=== PATIENT | male | born 1965 | race Hispanic/Latino ===

== ENCOUNTER 2022-11-08 13:43 | Inpatient (IN) | payer OTHER ==
[~2022-11-08] VITALS: Ht 160 cm; Wt 63.2 kg
[2022-11-08] MEDS: HEPARIN 5,000 UNIT VIAL IV SCH (14:00)
[2022-11-08] MEDS ORDERED: NITROGLYCERIN 50MG/D5W 250ML 250 BOT IV SCH (14:00)
[2022-11-08] MEDS ORDERED: HEPARIN 25,000 UNITS/250ML D5W 250 ML IV SCH (14:00)
[2022-11-08] MEDS ORDERED: NITROGLYCERIN 50MG/D5W 250ML 1 BOT IV PRN (14:00)
[2022-11-08 14:13] LABS: BASOPHILS % (AUTO) 0.2 % (0.0-5.0); LYMPHOCYTES % (AUTO) 7.3 % (21.0-51.0); MEAN CORPUSCULAR HEMOGLOBIN 28.1 pg (27.0-33.0); MEAN CORPUSCULAR HGB CONC 33.5 g/dL (32.0-36.0); MEAN CORPUSCULAR VOLUME 83.9 fL (79-99); MONOCYTES % (AUTO) 4.6 % (3.0-13.0); NEUTROPHILS % (AUTO) 86.9 % (40.0-77.0); PLATELET COUNT (AUTO) 182 K/uL (130-400); RED BLOOD CELL COUNT(AUTO) 4.41 MIL/uL (4.50-6.20); RED CELL DISTRIBUTION WIDTH 13.8 % (11.0-15.5); WHITE BLOOD COUNT (AUTO) 6.3 K/uL (4.8-10.8)
[2022-11-08 14:24] LABS: INR 0.99 (0.85-1.15); PROTHROMBIN TIME 10.8 SEC (9.6-11.6)
[2022-11-08 14:26] LABS: ALBUMIN 3.5 g/dL (3.5-5.0); MAGNESIUM 1.7 mg/dL (1.80-2.40); PARTIAL THROMBOPLASTIN TIME 29.2 SEC (26.3-35.5); TOTAL PROTEIN, SERUM 6.4 g/dL (6.0-8.3)
[2022-11-08] MEDS ORDERED: TICAGRELOR 90 MG TABLET PO ONE (14:30)
[2022-11-08] MEDS ORDERED: ASPIRIN 81MG CHEW TAB PO ONE (14:30)
[2022-11-08 14:33] LABS: B-TYPE NATRIURETIC PEPTIDE 45 pg/mL (0-100)
[2022-11-08 14:43] LABS: APPEARANCE,URINE CLEAR (CLEAR); BILIRUBIN,URINE NEGATIVE (NEGATIVE); COLOR,URINE LIGHT-YELLOW (YELLOW); GLUCOSE, URINE (UA) NEGATIVE (NEGATIVE); KETONES,URINE NEGATIVE (NEGATIVE); LEUKOCYTE ESTERASE ,URINE NEGATIVE Leu/uL (NEGATIVE); NITRATE,URINE NEGATIVE (NEGATIVE); OCCULT BLOOD,URINE NEGATIVE (NEGATIVE); PH,URINE 5.5 (5.0-8.0); PROTEIN,URINE NEGATIVE (NEGATIVE); UROBILINOGEN,URINE 0.2 mg/dL (0.2-1.0)
[2022-11-08 14:45] LABS: MUCUS,URINE RARE LPF (None Seen); SQUAMOUS EPITHELIAL CELL,UR RARE /HPF (0-2); WBC,URINE 0-1 /HPF (0-1)
[2022-11-08] MEDS: MAGNESIUM 2GM PREMIX 50ML 50 ML IV SCH (17:44)
[2022-11-08 18:58] LABS: AMPHET/METH SCREEN,URINE NEGATIVE (NEGATIVE); BARBITURATE SCREEN, URINE NEGATIVE (NEGATIVE); BENZODIAZEPINES SCREEN,URINE NEGATIVE (NEGATIVE); CANNABINOID SCREEN,URINE NEGATIVE (NEGATIVE); COCAINE SCREEN,URINE NEGATIVE (NEGATIVE); OPIATE SCREEN,URINE NEGATIVE (NEGATIVE); PHENCYCLIDINE SCREEN,URINE NEGATIVE (NEGATIVE)
[2022-11-08 19:20] LABS: MAGNESIUM 9.2 mg/dL (1.80-2.40); PHOSPHORUS 16.5 mg/dL (2.5-4.9)
[2022-11-08] MEDS: METOPROLOL TARTRATE 25 MG TAB PO SCH (20:29)
[2022-11-08] MEDS: FAMOTIDINE 20MG VIAL IV SCH (20:29)
[2022-11-08] MEDS: ATORVASTATIN 40 MG TABLET PO SCH (20:30)
[2022-11-08 20:51] LABS: INR 1.02 (0.85-1.15); PROTHROMBIN TIME 11.1 SEC (9.6-11.6)
[2022-11-08 20:53] LABS: PARTIAL THROMBOPLASTIN TIME 58.6 SEC (26.3-35.5)
[2022-11-09] VITALS (13 sets, daily range): BP systolic 86–143; BP diastolic 50–90
[2022-11-09 02:07] LABS: INR 1.06 (0.85-1.15); PROTHROMBIN TIME 11.5 SEC (9.6-11.6)
[2022-11-09 02:09] LABS: PARTIAL THROMBOPLASTIN TIME 55.8 SEC (26.3-35.5)
[2022-11-09 02:46] LABS: MYOGLOBIN 483 ng/mL (10-92)
[2022-11-09 03:15] LABS: CREATINE KINASE, TOTAL 2043 U/L (21-232)
[2022-11-09] MEDS ORDERED: IPRATROPIUM 0.5 MG/2.5 ML INH IH ONE (06:45)
[2022-11-09] MEDS: HEPARIN 5,000 UNIT VIAL IV SCH (07:00)
[2022-11-09] MEDS: METOPROLOL TARTRATE 25 MG TAB PO SCH ×2 (08:10→20:18)
[2022-11-09] MEDS: FAMOTIDINE 20MG VIAL IV SCH (08:10)
[2022-11-09 08:27] LABS: MAGNESIUM 1.9 mg/dL (1.80-2.40); PHOSPHORUS 3.3 mg/dL (2.5-4.9)
[2022-11-09] MEDS: TICAGRELOR 90 MG TABLET PO SCH ×2 (09:55→20:18)
[2022-11-09] MEDS: ASPIRIN 81 MG EC TAB PO SCH (09:55)
[2022-11-09] MEDS ORDERED: LIDOCAINE HCL 400MG/20ML VIAL ONE (13:28)
[2022-11-09] MEDS ORDERED: NITROGLYCERIN 50MG VIAL ONE ×2 (13:28→13:42)
[2022-11-09] MEDS ORDERED: IOHEXOL 350 MG/ML 100ML INFUS..BTL IV ONE ×2 (13:28→14:29)
[2022-11-09] MEDS ORDERED: HEPARIN 10,000 UNIT/10ML (1,000 UNIT/ML) VIAL ONE (13:28)
[2022-11-09] MEDS ORDERED: MIDAZOLAM HCL 1 MG/ML 2ML VIAL ONE (13:28)
[2022-11-09] MEDS ORDERED: BIVALIRUDIN 250 MG/VIAL IV ONE (13:28)
[2022-11-09] MEDS ORDERED: FENTANYL CITRATE PF 50 MCG/1 ML 2ML VIAL ONE (13:34)
[2022-11-09] MEDS ORDERED: 0.9%NACL 1000ML 1,000 ML IV SCH (15:00)
[2022-11-09] MEDS ORDERED: PHARMACY COMMUNICATION MISC SCH (19:30)
[2022-11-09] MEDS ORDERED: HEPARIN 25,000 UNITS/250ML D5W 250 ML IV SCH (20:00)
[2022-11-09] MEDS: ATORVASTATIN 40 MG TABLET PO SCH (20:18)
[2022-11-10] VITALS (14 sets, daily range): BP systolic 78–120; BP diastolic 51–68
[2022-11-10] MEDS ORDERED: 0.9% NACL 500ML IV.SOLN 500 ML IV SCH
[2022-11-10 02:59] LABS: BASOPHILS % (AUTO) 0.2 % (0.0-5.0); HEMATOCRIT 31.9 % (42-54); LYMPHOCYTES % (AUTO) 33.4 % (21.0-51.0); MEAN CORPUSCULAR HEMOGLOBIN 28.2 pg (27.0-33.0); MEAN CORPUSCULAR HGB CONC 32.6 g/dL (32.0-36.0); MEAN CORPUSCULAR VOLUME 86.4 fL (79-99); MONOCYTES % (AUTO) 8.3 % (3.0-13.0); NEUTROPHILS % (AUTO) 57.3 % (40.0-77.0); PLATELET COUNT (AUTO) 117 K/uL (130-400); RED BLOOD CELL COUNT(AUTO) 3.69 MIL/uL (4.50-6.20); RED CELL DISTRIBUTION WIDTH 14.1 % (11.0-15.5); WHITE BLOOD COUNT (AUTO) 4.9 K/uL (4.8-10.8)
[2022-11-10 03:40] LABS: CREATININE 0.9 mg/dL (0.5-1.5); THYROID STIMULATING HORMONE 0.91 uIU/mL (0.36-3.74)
[2022-11-10 03:52] LABS: % IRON SATURATION 6.5 % (30-44)
[2022-11-10] MEDS ORDERED: 0.9% NACL 250ML 250 ML IV SCH (06:00)
[2022-11-10] MEDS: TICAGRELOR 90 MG TABLET PO SCH ×2 (08:17→19:41)
[2022-11-10] MEDS: ASPIRIN 81 MG EC TAB PO SCH (08:17)
[2022-11-10] MEDS: METOPROLOL TARTRATE 25 MG TAB PO SCH ×2 (08:22→21:00)
[2022-11-10] MEDS: ATORVASTATIN 40 MG TABLET PO SCH (19:41)
[2022-11-11] VITALS (9 sets, daily range): BP systolic 85–127; BP diastolic 53–73
[2022-11-11 04:07] LABS: HEMOGLOBIN A1C 6.4 % (4.0-6.0)
[2022-11-11 04:23] LABS: CHOLESTEROL 152 mg/dL (<200); HDL CHOLESTEROL 36 mg/dL (29-71); LDL DIRECT 95 mg/dL (0-99); TRIGLYCERIDES 91 mg/dL (30-200)
[2022-11-11] MEDS: ASPIRIN 81 MG EC TAB PO SCH (08:10)
[2022-11-11] MEDS: METOPROLOL TARTRATE 25 MG TAB PO SCH ×2 (08:10→20:47)
[2022-11-11] MEDS: TICAGRELOR 90 MG TABLET PO SCH ×2 (08:10→20:46)
[2022-11-11 15:18] LABS: APPEARANCE,URINE CLEAR (CLEAR); BILIRUBIN,URINE NEGATIVE (NEGATIVE); COLOR,URINE LIGHT-YELLOW (YELLOW); GLUCOSE, URINE (UA) 50 mg/dL (NEGATIVE); KETONES,URINE NEGATIVE (NEGATIVE); LEUKOCYTE ESTERASE ,URINE NEGATIVE Leu/uL (NEGATIVE); NITRATE,URINE NEGATIVE (NEGATIVE); OCCULT BLOOD,URINE NEGATIVE (NEGATIVE); PROTEIN,URINE 10 mg/dL (NEGATIVE); UROBILINOGEN,URINE 3 mg/dL (0.2-1.0)
[2022-11-11 15:25] LABS: MUCUS,URINE RARE LPF (None Seen); RBC,URINE 0-1 /HPF (0-1)
[2022-11-11] MEDS: CEFTRIAXONE 2GM VIAL IVPB SCH (15:33)
[2022-11-11] MEDS: ACETAMINOPHEN 325 MG TAB PO PRN ×2 (15:41→21:20)
[2022-11-11 16:32] LABS: POTASSIUM 4.2 mmol/L (3.5-5.1)
[2022-11-11 16:52] LABS: HEMATOCRIT 29.5 % (42-54); LYMPHOCYTES % (AUTO) 19.3 % (21.0-51.0); MEAN CORPUSCULAR HGB CONC 33.2 g/dL (32.0-36.0); MEAN CORPUSCULAR VOLUME 84.3 fL (79-99); MONOCYTES % (AUTO) 6.2 % (3.0-13.0); NEUTROPHILS % (AUTO) 73.3 % (40.0-77.0); PLATELET COUNT (AUTO) 121 K/uL (130-400); RED CELL DISTRIBUTION WIDTH 14.1 % (11.0-15.5); WHITE BLOOD COUNT (AUTO) 1.6 K/uL (4.8-10.8)
[2022-11-11] MEDS: ATORVASTATIN 40 MG TABLET PO SCH (20:46)
[2022-11-12 03:21] VITALS: BP 106/64
[2022-11-12 03:43] LABS: BASOPHILS % (AUTO) 0.3 % (0.0-5.0); HEMATOCRIT 33.2 % (42-54); LYMPHOCYTES % (AUTO) 19.8 % (21.0-51.0); MEAN CORPUSCULAR HEMOGLOBIN 27.6 pg (27.0-33.0); MEAN CORPUSCULAR HGB CONC 33.1 g/dL (32.0-36.0); MEAN CORPUSCULAR VOLUME 83.2 fL (79-99); MONOCYTES % (AUTO) 7.5 % (3.0-13.0); NEUTROPHILS % (AUTO) 65.7 % (40.0-77.0); PLATELET COUNT (AUTO) 122 K/uL (130-400); RED BLOOD CELL COUNT(AUTO) 3.99 MIL/uL (4.50-6.20); RED CELL DISTRIBUTION WIDTH 13.8 % (11.0-15.5); WHITE BLOOD COUNT (AUTO) 3.9 K/uL (4.8-10.8)
[2022-11-12 08:00] VITALS: BP 120/52
[2022-11-12] MEDS: TICAGRELOR 90 MG TABLET PO SCH ×2 (08:24→20:43)
[2022-11-12] MEDS: ACETAMINOPHEN 325 MG TAB PO PRN (08:24)
[2022-11-12] MEDS: ASPIRIN 81 MG EC TAB PO SCH (08:25)
[2022-11-12] MEDS: METOPROLOL TARTRATE 25 MG TAB PO SCH ×2 (08:25→20:46)
[2022-11-12 11:21] VITALS: BP 81/52
[2022-11-12] MEDS: CEFTRIAXONE 2GM VIAL IVPB SCH (15:48)
[2022-11-12 16:00] VITALS: BP 91/56
[2022-11-12] MEDS: DOXYCYCLINE 100MG+NS 250ML IV SCH (18:05)
[2022-11-12] MEDS ORDERED: 0.9% NACL 250ML 250 ML ONE (18:10)
[2022-11-12 19:36] VITALS: BP 129/65
[2022-11-12] MEDS: ATORVASTATIN 40 MG TABLET PO SCH (20:46)
[2022-11-13 00:46] VITALS: BP 98/57
[2022-11-13 04:08] LABS: HEMATOCRIT 29.2 % (42-54); MEAN CORPUSCULAR HEMOGLOBIN 27.8 pg (27.0-33.0); MEAN CORPUSCULAR HGB CONC 33.2 g/dL (32.0-36.0); MEAN CORPUSCULAR VOLUME 83.7 fL (79-99); MONOCYTES % (AUTO) 4.7 % (3.0-13.0); NEUTROPHILS % (AUTO) 64.4 % (40.0-77.0); PLATELET COUNT (AUTO) 121 K/uL (130-400); RED BLOOD CELL COUNT(AUTO) 3.49 MIL/uL (4.50-6.20); WHITE BLOOD COUNT (AUTO) 1.9 K/uL (4.8-10.8)
[2022-11-13 04:33] LABS: CRP QUANTITATIVE 154.3 mg/L (0.00-9.0); MAGNESIUM 1.5 mg/dL (1.80-2.40); PHOSPHORUS 2.5 mg/dL (2.5-4.9); POTASSIUM 3.3 mmol/L (3.5-5.1)
[2022-11-13 04:38] VITALS: BP 90/56
[2022-11-13] MEDS: DOXYCYCLINE 100MG+NS 250ML IV SCH (05:02)
[2022-11-13] MEDS: MAGNESIUM 2GM PREMIX 50ML 50 ML IV SCH (05:03)
[2022-11-13 05:20] LABS: ERYTHROCYTE SEDIMENTATION RATE 24 MM/HR (0-20)
[2022-11-13 07:00] VITALS: BP 95/63
[2022-11-13] MEDS: TICAGRELOR 90 MG TABLET PO SCH (08:19)
[2022-11-13] MEDS: ASPIRIN 81 MG EC TAB PO SCH (08:19)
[2022-11-13] MEDS: METOPROLOL TARTRATE 25 MG TAB PO SCH (08:25)
[2022-11-13] MEDS ORDERED: POTASSIUM CHLORIDE 10% ELIXIR 20 MEQ/15 ML UDCUP PO ONE (09:30)
[2022-11-13] MEDS ORDERED: LIDOCAINE HCL-MPF 1% 2ML VIAL IV PRN (09:30)
[2022-11-13] MEDS ORDERED: POTASSIUM CHLORIDE 10% ELIXIR 20 MEQ/15 ML UDCUP PO PRN (09:30)
[2022-11-13] MEDS ORDERED: KCL 20 MEQ ERTAB PO PRN (09:30)
[2022-11-13] MEDS ORDERED: POTASSIUM CHLORIDE 20MEQ/100ML 100 ML IV PRN (09:30)
[2022-11-13 09:33] LABS: ALBUMIN 2.3 g/dL (3.5-5.0); BILIRUBIN,DIRECT 0.1 mg/dL (0.0-0.3); TOTAL PROTEIN, SERUM 4.4 g/dL (6.0-8.3)
[2022-11-13 11:00] VITALS: BP 101/70
[2022-11-13] MEDS ORDERED: AEC81 PO (11:51)
[2022-11-13] MEDS ORDERED: ATOR40TA69 PO (11:51)
[2022-11-13] MEDS ORDERED: TICA90TA PO (11:51)
[2022-11-13] MEDS ORDERED: DOXY100C5 PO (11:51)
[2022-11-13] MEDS ORDERED: 0.9%NACL 1000ML 500 ML IV SCH (12:00)
[2022-11-13] MEDS ORDERED: MAGNESIUM CHLORIDE 64 MG TABLET.SA PO SCH (21:00)
== END 2022-11-13 14:00 | disposition home or self-care (01) | DRG 247 ==
LOC: EDH 13:43 → EDHIP 18:12 → 2DH 11-09 02:07
PROVIDERS: ADMIT Internal Medicine; ATTEND Internal Medicine
PROC: B2111ZZ Fluoroscopy of Multiple Coronary Arteries using Low Osmolar Contrast (ICD-10-PCS; principal; 2022-11-09)
PROC: 027034Z Dilation of Coronary Artery, One Artery with Drug-eluting Intraluminal Device, Percutaneous Approach (ICD-10-PCS; 2022-11-09)
PROC: 02C03ZZ Extirpation of Matter from Coronary Artery, One Artery, Percutaneous Approach (ICD-10-PCS; 2022-11-09)
PROC: 4A023N7 Measurement of Cardiac Sampling and Pressure, Left Heart, Percutaneous Approach (ICD-10-PCS; 2022-11-09)
DX: I21.4 Non-ST elevation (NSTEMI) myocardial infarction (principal); E87.1 Hypo-osmolality and hyponatremia; G40.909 Epilepsy, unspecified, not intractable, without status epilepticus; I25.5 Ischemic cardiomyopathy; E83.42 Hypomagnesemia; D64.9 Anemia, unspecified; Z85.72 Personal history of non-Hodgkin lymphomas
CPT/HCPCS: 36415; 71045; 76882; 80048; 80053; 80061; 80076; 80305; 81001; 82550; 82607; 82728; 82746; 82948; 83036; 83540; 83550; 83605; 83735; 83874; 83880; 84100; 84145; 84443; 84484; 85025; 85045; 85610; 85651; 85730; 86140; 87040; 87088; 92973; 92978; 93005; 93306; 93356; 93454; C1887; C1894; C9606; G0378; J0583; J0696; J1644; J2250; J3010; J3475; J3490; J7030; J7040; J7050; Q9967

== ENCOUNTER → 2023-02-15 | Outpatient (CLI) | payer OTHER ==
[~2023-02-15] MED LIST: AEC81 PO; ATOR40TA69 PO; DOXY100C5 PO; TICA90TA PO
== END | disposition home or self-care (01) ==
LOC: SHCH 12:54
PROVIDERS: ATTEND Internal Medicine
DX: I25.5 Ischemic cardiomyopathy (principal); I51.7 Cardiomegaly; Z98.61 Coronary angioplasty status
CPT/HCPCS: 93306

== ENCOUNTER 2025-05-03 18:41 | Emergency (ER) | payer BC, OTHER ==
[~2025-05-03] VITALS: Ht 160 cm; Wt 55.3 kg
--- NOTE | 2025-05-03 21:11 | ERN ---
ED Note History of Present Illness Stated Complaint: BACK PAIN Chief Complaint: Back Pain-No Injury Time Seen by MD: 18:44 Time Seen by Midlevel: 18:45 Dictation: 60-year-old male presents to the emergency department due to reported having pain to lower back which he attributes to having had sustained a fall 3 weeks ago. Patient states the pain is primarily with certain particular movements. At this time, he rates his level of discomfort as a 4/10. He denies having any loss of bowel or bladder and maintains a normal neurological function to both lower extremities. Upon initial evaluation, the patient presents mildly uncomfortable looking. 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 Prov:DEVENDRA ANGEL Jr., MD 11/13/22 Atorvastatin Calcium (LIPITOR) 40 Mg Tablet, 80 MG PO HS for HYPERLIPIDEMIA for 90 Days, #90 TAB 3 Refills Take 1 tablet orally at bedtime Prov:DEVENDRA ANGEL Jr., MD 11/13/22 Aspirin (ASPIRIN 81 MG ECTAB) 81 Mg Ectab, 81 MG PO DAILY for CAD/FIDELINA for 90 Days, #90 TAB.EC 3 Refills Take 1 aspirin daily for 1 year (until 11/09/2023) or unless otherwise specified by lamp stack developer. Prov:DEVENDRA ANGEL Jr., MD 11/13/22 Past Medical History Past Medical History: Other Additional Past Medical Hx: Non-Hodgkin's lymphoma Surgical History: Unknown Social History: Negative RN Note Reviewed/Agreed w/PFSH: Yes Review of System Dictation MS/Extremity: Low back pain Initial Vital Sign VS Vital Signs Date Time Temp Pulse Resp B/P (MAP) Pulse Ox O2 Delivery O2 Flow Rate FiO2 05/03/25 18:43 99.7 92 16 114/64 95 Room Air 05/03/25 18:51 0 21 Physical Exam Dictation General: awake, alert, NAD Head/Face: Normocephalic, atraumatic Eyes: PERRL, EOMI ENT: Oral mucosa moist Neck: Trachea midline, supple Cardiovascular: RRR, no edema Respiratory: Symmetrical, non-labored Abdomen: Soft, non-tender, non-distended, no guarding. Skin: Warm, dry, good turgor, no rash MS/Extremity: Pulses equal, no cyanosis, neurovascular intact, FROM Back: Diffuse tenderness to low back. No step-off deformity Neuro: COAx4, GCS 15, steady gait, Psych: Normal behavior, mood, and affect normal Results (Laboratory/Radiology) X-RAY Comment: Three-view x-ray of the lumbar spine with no cortical anomalies or deformities as interpreted me. ED Course ED Course Orders Procedure Category Date Status Time Lumbar Spine 2-3vws RAD 05/03/25 Taken 18:53 Ketorolac 60mg/2ml PHA 05/03/25 Complete (Toradol 60mg/2ml) 19:00 Dexamethasone 4mg/Ml PHA 05/03/25 Complete 1ml Vial (Dexametha 19:00 Morphine 2mg Syg PHA 05/03/25 Complete (Morphine 2mg Syg) 20:00 Ondansetron 4mg Inj PHA 05/03/25 Complete (Zofran 4mg Inj) 20:00 Current Medications Medications (Trade) Dose Ordered Sig/Tono Route PRN Reason Start Time Stop Time Status Last Admin Dose Admin Dexamethasone Sodium Phosphate (dexaMETHasone 4MG/ML 1ML VIAL) 8 mg ONCE ONCE IM 05/03/25 19:00 05/03/25 19:21 DC 05/03/25 19:22 Ketorolac Tromethamine (toRADol 60MG/ 2ML) 60 mg ONCE ONCE IM 05/03/25 19:00 05/03/25 19:21 DC 05/03/25 19:23 Morphine Sulfate (morPHINE 2MG SYG) 2 mg ONCE ONCE IVP 05/03/25 20:00 05/03/25 20:01 DC 05/03/25 20:05 Ondansetron HCl (zoFRAN 4MG INJ) 4 mg ONCE ONCE IVP 05/03/25 20:00 05/03/25 20:01 DC 05/03/25 20:05 Vital Signs Date Time Temp Pulse Resp B/P (MAP) Pulse Ox O2 Delivery O2 Flow Rate FiO2 05/03/25 18:51 99.7 90 16 114/62 98 Room Air* 0 21 05/03/25 18:43 99.7 92 16 114/64 95 Room Air Medical Decision Making MDM MDM: Differential diagnosis: Lumbar sprain, lumbar contusion, lumbar vertebral fracture. Rationale: Tests considered and ordered secondary to shared decision making include: Previous outside records reviewed: Old ER visits. Risk of complication and/or morbidity or mortality of patient management: None Medications-Per medication reconciliation Need for hospitalization: Patient does not meet criteria for hospitalization. Need for emergency major/minor surgery: No There are no social concerns with this patient. Prescription drug management Prescriptions will include symptomatic care Patient's prior external medical records from other ER visits were reviewed by me as indicated. Prior testing and results from previous visits were reviewed. Prior tests were taken into account with medical decision making and resource utilization, independent historian/historians were used to obtain complete medical history. I independently interpreted the test that were performed, results were reviewed by me and considered findings on radiology if ordered. Medical management and examination interpretation discussions were had by me with other qualified healthcare professionals as indicated for the patient's care. DX & DISP Disposition: Discharge Departure Impression: Primary Impression: Lumbar back sprain Condition: Stable Referrals: PHYLICIA HAIRSTON MD (PCP) Time of Disposition: 21:10 DEVENDRA BURTON May 03, 2025 21:11
[2025-05-03 21:12] VITALS: BP 118/62; PULSE 87; RESP 16; TEMP 98.3; O2SAT 98
--- NOTE | 2025-05-03 21:37 | HMCIMG ---
EXAM: CR Lumbar Spine, 2 views CLINICAL HISTORY: Pain. COMPARISON: None provided. FINDINGS: Lumbar alignment is within normal limits. Mild spondylosis is evident by tiny marginal osteophytes and facet arthropathy at multiple levels. Mild degenerative disc space narrowing at L5-S1. The remaining disc spaces are maintained. Normal vertebral body heights. No acute fracture. Atherosclerotic vascular calcification is evident. IMPRESSION: Lumbar alignment is within normal limits. Mild spondylosis is evident by tiny marginal osteophytes and facet arthropathy at multiple levels. Mild degenerative disc space narrowing at L5-S1. /[place]
== END 2025-05-03 21:22 | disposition home or self-care (01) ==
LOC: EDH 18:41
DX: S33.5XXA Sprain of ligaments of lumbar spine, initial encounter (principal); Z91.040 Latex allergy status; Z79.82 Long term (current) use of aspirin; Z85.72 Personal history of non-Hodgkin lymphomas; W18.39XA Other fall on same level, initial encounter; Y93.89 Activity, other specified; Y92.89 Other specified places as the place of occurrence of the external cause; Y99.8 Other external cause status
CPT/HCPCS: 99284; 96374; 96375; 72100; 96372 ×2; J1885; J1100; J2270; J2405